=== PATIENT | male | born 1955 | race Caucasian/White ===

== ENCOUNTER 2022-11-08 01:00 | Inpatient (IN) | payer MEDICARE, BC ==
[~2022-11-08] VITALS: Ht 170.2 cm; Wt 66.5 kg
[2022-11-08 02:37] LABS: BASO % 0.5 % (0.0-1.0); EOS # 0.1 10^3/uL (0.0-0.5); EOS % 2.2 % (0.0-3.0); HEMATOCRIT 32.9 % (42.0-52.0); HEMOGLOBIN 10.8 g/dl (13.5-17.5); LYMPH # 0.7 10^3/uL (1.5-5.0); LYMPH % 12.5 % (24.0-44.0); MEAN CORPUSCULAR HGB CONC 32.8 g/dl (32.0-36.5); MEAN CORPUSCULAR VOLUME 94.5 fl (80.0-96.0); MONO # 0.5 10^3/uL (0.0-0.8); MONO % 9.5 % (2.0-8.0); NEUTROPHILS # 4.1 10^3/uL (1.5-8.5); NEUTROPHILS % 74.9 % (36.0-66.0); PLATELET COUNT, AUTOMATED 184 10^3/uL (150-450); RED BLOOD COUNT 3.48 10^6/uL (4.30-6.10); WHITE BLOOD COUNT 5.5 10^3/uL (4.0-10.0)
[2022-11-08 02:53] LABS: ETHYL ALCOHOL (ETHANOL) 0.003 % (0.000-0.010)
[2022-11-08 02:55] LABS: ACETAMINOPHEN LEVEL < 2.0 UG/ML (10.0-20.0); ALBUMIN 4.3 G/DL (3.2-5.2); ALKALINE PHOSPHATASE 91 U/L (46-116); ALT/SGPT < 9 U/L (7.0-40); AST/SGOT 30 U/L (<34); BILIRUBIN,DIRECT 0.1 MG/DL (<0.4); BILIRUBIN,TOTAL 0.4 MG/DL (0.3-1.2); BLOOD UREA NITROGEN 35 MG/DL (9-23); CALCIUM LEVEL 9.4 MG/DL (8.3-10.6); CARBON DIOXIDE LEVEL 25 MMOL/L (20-31); CHLORIDE LEVEL 109 MMOL/L (98-107); CREATININE FOR GFR 1.25 MG/DL (0.70-1.30); GLOMERULAR FILTRATION RATE > 60.0 (>49); GLUCOSE, FASTING 96 MG/DL (74-106); POTASSIUM SERUM 4.5 MMOL/L (3.5-5.1); SALICYLATE LEVEL < 3.0 MG/DL (<30); SODIUM LEVEL 142 MMOL/L (136-145); TOTAL PROTEIN 7.3 G/DL (5.7-8.2)
[2022-11-08 02:58] LABS: THYROID STIMULATING HORMONE 0.787 uIU/ML (0.55-4.78)
[2022-11-08 03:02] LABS: RSV AMPLIFICATION NEGATIVE (NEGATIVE)
[2022-11-08 03:04] LABS: AMPHETAMINES LEVEL URINE NEGATIVE (NEGATIVE); BARBITURATES URINE NEGATIVE (NEGATIVE); BENZODIAZEPINES URINE NEGATIVE (NEGATIVE); CANNABINOIDS URINE NEGATIVE (NEGATIVE); COCAINE METABOLITE URINE NEGATIVE (NEGATIVE); METHADONE URINE NEGATIVE (NEGATIVE); OPIATES URINE NEGATIVE (NEGATIVE); PHENCYCLIDINE URINE NEGATIVE (NEGATIVE)
[2022-11-08] MEDS ORDERED: NS 500 ML IV ONE (03:30)
[2022-11-08] MEDS ORDERED: OLANZapine INTRAMUSCULAR 10MG VIAL IM ONE (04:00)
[2022-11-08] MEDS ORDERED: GABA-282 PO ×2 (04:24)
[2022-11-08] MEDS ORDERED: QUET1TAB17 PO (04:24)
[2022-11-08] MEDS ORDERED: FURO20TA2 PO (04:24)
[2022-11-08] MEDS ORDERED: LOTR5CAP2 PO (04:24)
[2022-11-08] MEDS ORDERED: C 50TAB PO (04:31)
[2022-11-08] MEDS ORDERED: FLUO100P5 TEETH (04:31)
[2022-11-08] MEDS ORDERED: VITMTA PO (04:31)
[2022-11-08] MEDS ORDERED: OMEP40CA5 PO (04:31)
[2022-11-08] MEDS ORDERED: SERT50TA29 PO (04:31)
[2022-11-08] MEDS ORDERED: ROSU5TAB5 PO (04:31)
[2022-11-08] MEDS ORDERED: AMAN100T4 PO (04:31)
[2022-11-08] MEDS ORDERED: CALC-190 PO (04:31)
[2022-11-08] MEDS ORDERED: CELE1CAP9 PO (04:31)
[2022-11-08] MEDS ORDERED: CARB25TA9 PO (04:31)
[2022-11-08] MEDS ORDERED: CYAN500T14 PO (04:31)
[2022-11-08] MEDS ORDERED: ACET650T15 PO (04:31)
[2022-11-08] MEDS ORDERED: HOME MED LIST COMPLETE! XX SCH (04:35)
[2022-11-08] MEDS: SINEMET 25-100 MG TAB PO SCH ×3 (06:11→18:41)
[2022-11-08] MEDS: HEPARIN SOD (PORCINE) 5000UNITS/ML 1ML VIAL/SYRINGE SC SCH ×3 (06:15→20:53)
[2022-11-08] MEDS ORDERED: AMANTADINE 100MG TABLET PO SCH (09:00)
[2022-11-08] MEDS: amLODIPine 5 MG TAB PO SCH ×2 (11:07→20:53)
[2022-11-08] MEDS: CYANOCOBALAMIN 500 MCG TAB PO SCH (11:07)
[2022-11-08] MEDS: MULTIVITAMINS/MINERALS THERAP 1 TAB PO SCH (11:07)
[2022-11-08] MEDS: ASCORBIC ACID 500 MG TAB PO SCH (11:07)
[2022-11-08] MEDS ORDERED: PILL CUTTER 1 EACH XX PRN (11:30)
[2022-11-08] MEDS: OMEPRAZOLE 20MG CAP PO SCH ×2 (12:51→20:53)
[2022-11-08] MEDS: BENAZEPRIL 20 MG TAB PO SCH ×2 (12:51→20:52)
[2022-11-08 14:57] VITALS: BP 127/74
[2022-11-08] MEDS: QUEtiapine FUMARATE 50MG TAB PO SCH (20:53)
[2022-11-08] MEDS: AMANTADINE 100MG TABLET PO SCH (20:53)
[2022-11-08] MEDS ORDERED: SERTRALINE HCL 50 MG TAB PO SCH (21:00)
[2022-11-08] MEDS ORDERED: ROSUVASTATIN 10 MG TAB (CRESTOR) PO SCH (21:00)
[2022-11-08] MEDS ORDERED: QUEtiapine FUMARATE 25 MG TAB PO SCH (21:00)
[2022-11-09] MEDS ORDERED: ACETAMINOPHEN TAB 650MG DOSE (2X325MG) PO PRN (05:25)
[2022-11-09] MEDS: SINEMET 25-100 MG TAB PO SCH (06:12)
[2022-11-09] MEDS: HEPARIN SOD (PORCINE) 5000UNITS/ML 1ML VIAL/SYRINGE SC SCH (06:13)
[2022-11-09 07:36] VITALS: BP 129/70
[2022-11-09] MEDS: AMANTADINE 100MG TABLET PO SCH (08:32)
[2022-11-09] MEDS: amLODIPine 5 MG TAB PO SCH (08:32)
[2022-11-09] MEDS: QUEtiapine FUMARATE 50MG TAB PO SCH (08:32)
[2022-11-09] MEDS: MULTIVITAMINS/MINERALS THERAP 1 TAB PO SCH (08:32)
[2022-11-09] MEDS: OMEPRAZOLE 20MG CAP PO SCH (08:32)
[2022-11-09] MEDS: ASCORBIC ACID 500 MG TAB PO SCH (08:32)
[2022-11-09] MEDS: CYANOCOBALAMIN 500 MCG TAB PO SCH (08:32)
[2022-11-09 08:33] VITALS: BP 129/70
[2022-11-09] MEDS: BENAZEPRIL 20 MG TAB PO SCH (08:33)
[2022-11-09] MEDS ORDERED: AMAN100T4 PO (10:38)
[2022-11-09] MEDS ORDERED: QUET50TA4 PO (10:38)
== END 2022-11-09 10:53 | disposition home or self-care (01) | DRG 125 ==
LOC: M ED 01:00 → M ED INP 03:26
PROVIDERS: ADMIT Internal Medicine; ATTEND Internal Medicine
DX: R44.1 Visual hallucinations (principal); R44.0 Auditory hallucinations; G93.40 Encephalopathy, unspecified; R44.2 Other hallucinations; G20 Parkinson's disease; F32.A Depression, unspecified; G31.83 Neurocognitive disorder with Lewy bodies; K21.9 Gastro-esophageal reflux disease without esophagitis; E78.00 Pure hypercholesterolemia, unspecified; I10 Essential (primary) hypertension; Z20.822 Contact with and (suspected) exposure to COVID-19; Z85.46 Personal history of malignant neoplasm of prostate; Z88.0 Allergy status to penicillin; Z88.1 Allergy status to other antibiotic agents; Z79.899 Other long term (current) drug therapy